=== PATIENT | female | born 1995 | race African-American/Black ===

== ENCOUNTER 2017-09-13 09:03 | Inpatient (IN) | payer BC, MEDICAID ==
[~2017-09-13] VITALS: Ht 157.5 cm; Wt 53.8 kg
[2017-09-13] VITALS (38 sets, daily range): BP systolic 96–143; BP diastolic 43–90
[2017-09-13] MEDS ORDERED: SODIUM CHLORIDE 0.9% 1,000 ML IV ONE ×2 (09:24→13:16)
[2017-09-13 09:50] LABS: CHLORIDE 98 mEq/L (98-107)
[2017-09-13 09:52] LABS: HEMOGLOBIN. 16.4 g/dL (12.0-16.0); MEAN CORPUSCULAR HEMOGLOBIN 32.4 pg (28.0-32.0); MEAN CORPUSCULAR VOLUME 106.8 fL (81.0-99.0); MEAN PLATELET VOLUME 8.3 fl (7.4-10.4); PLATELET 364 x1000/uL (130-400); RED BLOOD CELL COUNT 5.06 mill/uL (4.2-5.4)
[2017-09-13] MEDS ORDERED: INSULIN REGULAR (DRIP) 100 UNITS in SODIUM CHLORIDE 0.9% 99 ML IV SCH (10:15)
[2017-09-13] MEDS ORDERED: INSULIN REGULAR (HUMULIN R) 300UNITS/3ML IV ONE (10:15)
[2017-09-13 10:39] LABS: BG CARBOXYHEMOGLOBIN 0.3 % (0.5-1.5); BG DEOXYHEMOGLOBIN 1.6 % (0.0-5.0); BG FRACTION INSPIRED OXYGEN 21; BG HCO3 ACT 2.1 mmol/L (22.0-26.0); BG METHEMOGLOBIN 0.6 % (0.0-1.5); BG OXYGEN SATURATION 98.4 % (92.0-98.5); BG OXYHEMOGLOBIN 97.5 % (94.0-97.0); BG PCO2 10.5 mmHg (35.0-45.0); BG PH 6.919 (7.350-7.450); BG PO2 164.4 mmHg (75.0-100.0); BG SAMPLE SITE RIGHT BRACHIAL; BG TOTAL HEMOGLOBIN 16.5 g/dL (12.0-18.0); BG VENT MODE ROOM AIR
[2017-09-13 10:40] LABS: BETA HYDROXYBUTYRATE 10.9 mMol/L (0.0-0.3)
[2017-09-13] MEDS ORDERED: SODIUM BICARBONATE 8.4% 1 MEQ/ML 50ML SYR IV ONE (11:00)
[2017-09-13] MEDS ORDERED: IPRATROPIUM/ALBUTEROL 0.5-3(2.5)MG/3ML NEB INH PRN (11:00)
[2017-09-13] MEDS ORDERED: ONDANSETRON HCL 4MG/2ML VIAL IV PRN (11:00)
[2017-09-13] MEDS ORDERED: INSULIN REGULAR (DRIP) 100 UNITS in SODIUM CHLORIDE 0.9% 100 ML IV SCH ×2 (11:00→16:00)
[2017-09-13 11:21] LABS: PLATELET ESTIMATE NORMAL
[2017-09-13 12:05] LABS: PHOSPHORUS 4.8 mg/dL (2.5-4.9)
[2017-09-13 12:17] LABS: CLARITY URINE CLEAR (CLEAR); COLOR URINE YELLOW (YELLOW); KETONES URINE 4+ (NEGATIVE); LEUKOCYTE ESTERASE URINE NEGATIVE (NEGATIVE); NITRITE URINE NEGATIVE (NEGATIVE); OCCULT BLOOD URINE 3+ (NEGATIVE); PROTEIN URINE 1+ (NEGATIVE); SPECIFIC GRAVITY URINE 1.026 (1.005-1.030); UROBILINOGEN URINE 0.2 E.U./dL (0.2-1.0)
[2017-09-13] MEDS ORDERED: SODIUM CHLORIDE 0.45% 1,000 ML IV SCH (12:30)
[2017-09-13 12:48] LABS: *AMPHETAMINES SCREEN URINE NEGATIVE (NEGATIVE); *BARBITURATES SCREEN URINE NEGATIVE (NEGATIVE); *BENZODIAZEPINES SCREEN URINE NEGATIVE (NEGATIVE); *COCAINE SCREEN URINE NEGATIVE (NEGATIVE); METHADONE URINE SCREEN NEGATIVE (NEGATIVE)
[2017-09-13 12:49] LABS: CANNABINOID URINE SCREEN NEGATIVE (NEGATIVE); OPIATES URINE SCREEN NEGATIVE (NEGATIVE); PHENCYCLIDINE URINE SCREEN NEGATIVE (NEGATIVE)
[2017-09-13] MEDS ORDERED: SODIUM CHLORIDE 0.9% 1,000 ML IV SCH (13:00)
[2017-09-13] MEDS ORDERED: DEXT 5%/0.9% NACL 1,000 ML IV SCH ×2 (13:30→16:30)
[2017-09-13 13:54] LABS: HCG SCREEN NEGATIVE
[2017-09-13] MEDS: PIPERACILLIN/TAZ 3.375G PREMIX 50 ML IV SCH ×2 (14:26→19:00)
[2017-09-13] MEDS: ENOXAPARIN 40MG/0.4ML SYR SUBCUT SCH (14:37)
[2017-09-13] MEDS ORDERED: DEXTROSE 50% WATER 50ML SYRINGE IV PRN ×2 (15:15)
[2017-09-13] MEDS: BLOOD SUGAR DIAGNOSTIC STRIP TEST SCH ×8 (16:00→23:15)
[2017-09-13 17:57] LABS: CHLORIDE 110 mEq/L (98-107)
[2017-09-13 18:06] LABS: CREATINE KINASE 37 IU/L (26-192)
[2017-09-13 18:08] LABS: CREATINE KINASE MB FRACTION < 0.5 ng/mL (0.5-3.6)
[2017-09-13] MEDS: DEXT 5%/0.9% NACL KCL 20MEQ/L 1,000 ML IV SCH (20:11)
[2017-09-14] VITALS (50 sets, daily range): BP systolic 89–122; BP diastolic 47–78
[2017-09-14] MEDS: PIPERACILLIN/TAZ 3.375G PREMIX 50 ML IV SCH ×3 (00:04→13:00)
[2017-09-14] MEDS: BLOOD SUGAR DIAGNOSTIC STRIP TEST SCH ×9 (00:04→21:17)
[2017-09-14 00:15] LABS: CHLORIDE 114 mEq/L (98-107)
[2017-09-14 00:26] LABS: CREATINE KINASE 29 IU/L (26-192)
[2017-09-14 00:29] LABS: CREATINE KINASE MB FRACTION < 0.5 ng/mL (0.5-3.6)
[2017-09-14] MEDS: DEXT 5%/0.9% NACL KCL 20MEQ/L 1,000 ML IV SCH (03:58)
[2017-09-14 06:02] LABS: BASOPHILS % 0.4 % (0.0-2.0); HEMATOCRIT. 39.1 % (36.0-48.0); HEMOGLOBIN. 13.2 g/dL (12.0-16.0); LYMPHOCYTES % 22.6 % (20.0-50.0); MEAN CORPUSCULAR HEMOGLOBIN 31.8 pg (28.0-32.0); MEAN CORPUSCULAR VOLUME 94.1 fL (81.0-99.0); MEAN PLATELET VOLUME 7.6 fl (7.4-10.4); MONOCYTES % 10.6 % (2.0-8.0); NEUTROPHILS % 66.4 % (40.0-76.0); PLATELET 274 x1000/uL (130-400); RED BLOOD CELL COUNT 4.16 mill/uL (4.2-5.4); RED CELL DISTRIBUTION WIDTH 13.7 % (11.6-14.6)
[2017-09-14 06:14] LABS: CHLORIDE 115 mEq/L (98-107)
[2017-09-14 06:24] LABS: PHOSPHORUS 2.4 mg/dL (2.5-4.9)
[2017-09-14] MEDS: DEXT 5%/0.45% NACL KCL 20MEQ/L 1,000 ML IV SCH ×2 (08:00→18:00)
[2017-09-14] MEDS ORDERED: POTASSIUM PHOS,M-BASIC-D-BASIC 10 MMOL in DEXT 5% WATER 246.6667 ML IV NR (09:00)
[2017-09-14] MEDS: INSULIN GLARGINE UD 100 UNITS/ML SYR SUBCUT SCH (10:10)
[2017-09-14] MEDS ORDERED: DEXTROSE 50% WATER 50ML SYRINGE IV PRN (11:00)
[2017-09-14] MEDS: INSULIN LISPRO 100 UNITS/ML SUBCUT SCH ×3 (12:00→21:18)
[2017-09-14] MEDS: ENOXAPARIN 40MG/0.4ML SYR SUBCUT SCH (14:00)
[2017-09-14] MEDS ORDERED: THROAT LOZENGES-BENZOCAINE/MENTH/CETYLPYRD CL LOZENGES MM PRN (16:30)
[2017-09-14] MEDS: AMOXICILLIN 500 MG CAPSULE PO SCH ×2 (16:33→21:18)
[2017-09-15 04:00] VITALS: BP 100/68
[2017-09-15] MEDS: DEXT 5%/0.45% NACL KCL 20MEQ/L 1,000 ML IV SCH (04:17)
[2017-09-15] MEDS: AMOXICILLIN 500 MG CAPSULE PO SCH ×2 (06:20→13:49)
[2017-09-15 07:36] LABS: BASOPHILS % 0.8 % (0.0-2.0); EOSINOPHILS % 0.6 % (0.0-5.0); HEMATOCRIT. 35.4 % (36.0-48.0); HEMOGLOBIN. 11.9 g/dL (12.0-16.0); LYMPHOCYTES % 38.1 % (20.0-50.0); MEAN CORPUSCULAR HEMOGLOBIN 31.2 pg (28.0-32.0); MEAN CORPUSCULAR VOLUME 93.2 fL (81.0-99.0); MEAN PLATELET VOLUME 7.8 fl (7.4-10.4); MONOCYTES % 7.1 % (2.0-8.0); NEUTROPHILS % 53.4 % (40.0-76.0); PLATELET 236 x1000/uL (130-400); RED CELL DISTRIBUTION WIDTH 13.9 % (11.6-14.6)
[2017-09-15 08:00] VITALS: BP 107/45
[2017-09-15] MEDS: BLOOD SUGAR DIAGNOSTIC STRIP TEST SCH ×2 (08:17→13:04)
[2017-09-15 08:56] LABS: CHLORIDE 109 mEq/L (98-107)
[2017-09-15 09:19] LABS: PHOSPHORUS 2.1 mg/dL (2.5-4.9)
[2017-09-15] MEDS: INSULIN GLARGINE UD 100 UNITS/ML SYR SUBCUT SCH (09:48)
[2017-09-15] MEDS: INSULIN LISPRO 100 UNITS/ML SUBCUT SCH ×2 (09:49→13:52)
[2017-09-15] MEDS ORDERED: INSLIS SUBCUT (10:54)
[2017-09-15] MEDS ORDERED: LANTUSUD SUBCUT (10:54)
[2017-09-15] MEDS ORDERED: SODIUM PHOS,M-BASIC-D-BASIC 15 MM in DEXT 5% WATER 245 ML IV NR (11:30)
[2017-09-15 12:00] VITALS: BP 102/61
[2017-09-15] MEDS: ENOXAPARIN 40MG/0.4ML SYR SUBCUT SCH (13:49)
[2017-09-15 16:04] VITALS: BP 105/60
== END 2017-09-15 16:30 | disposition home or self-care (01) | DRG 638 ==
LOC: ER 09:45 → EDBEDREQ 10:16 → MICUSO 10:16 → EDBEDREQ 10:25 → ENRESERV 11:15 → 7WST 09-14 23:00
PROVIDERS: ADMIT Internal Medicine; ATTEND Internal Medicine
DX: E10.10 Type 1 diabetes mellitus with ketoacidosis without coma (principal); E87.1 Hypo-osmolality and hyponatremia; E87.5 Hyperkalemia; N39.0 Urinary tract infection, site not specified; E86.9 Volume depletion, unspecified; B95.5 Unspecified streptococcus as the cause of diseases classified elsewhere; Z79.4 Long term (current) use of insulin
CPT/HCPCS: 36415; 36600; 71045; 80048; 80053; 80305; 81003; 82010; 82375; 82550; 82553; 82805; 82962; 83690; 83735; 84100; 84443; 84484; 84703; 85025; 87040; 87077; 87086; 93005; 93306; 93970; 96374; 96376; 99291; J1650; J1815; J2405; J2543; J3490; J7030; J7042; J7050; J7060

== ENCOUNTER 2022-01-07 11:57 | Inpatient (IN) | payer MEDICAID ==
[~2022-01-07] VITALS: Ht 165.1 cm; Wt 75.3 kg
[2022-01-07] VITALS (7 sets, daily range): BP systolic 109–142; BP diastolic 67–87
[~2022-01-07 11:57] MED LIST: INSLIS SUBCUT; LANTUSUD SUBCUT
[2022-01-07] MEDS ORDERED: SODIUM CHLORIDE 0.9% 1,000 ML IV ONE ×2 (12:30→14:00)
[2022-01-07 13:49] LABS: HEMATOCRIT. 46.3 % (36.0-48.0); HEMOGLOBIN. 13.8 g/dL (12.0-16.0); MEAN CORPUSCULAR HEMOGLOBIN 29.7 pg (28.0-32.0); MEAN CORPUSCULAR VOLUME 99.5 fL (81.0-99.0); MEAN PLATELET VOLUME 7.9 fl (7.4-10.4); PLATELET 311 x1000/uL (130-400); RED BLOOD CELL COUNT 4.66 mill/uL (4.2-5.4); RED CELL DISTRIBUTION WIDTH 15.4 % (11.6-14.6)
[2022-01-07 13:53] LABS: CHLORIDE 102 mEq/L (98-107)
[2022-01-07 14:00] LABS: HCG SCREEN NEGATIVE
[2022-01-07 14:07] LABS: BETA HYDROXYBUTYRATE 9.2 mMol/L (0.0-0.3)
[2022-01-07] MEDS ORDERED: CALCIUM CHLORIDE 1GM/10ML SYR IV SCH (14:15)
[2022-01-07] MEDS ORDERED: SODIUM CHLORIDE 0.9% 1,000 ML IV SCH (14:15)
[2022-01-07] MEDS ORDERED: INSULIN REGULAR 100U/100ML PMX 100 ML IV SCH ×3 (14:15→22:15)
[2022-01-07 14:50] LABS: BG BASE EXCESS -30.2 mmol/L (-2.0-2.0); BG CARBOXYHEMOGLOBIN 0.3 % (0.5-1.5); BG DEOXYHEMOGLOBIN 2.4 % (0.0-5.0); BG FRACTION INSPIRED OXYGEN 21; BG HCO3 ACT 1.9 mmol/L (22.0-26.0); BG METHEMOGLOBIN 0.5 % (0.0-1.5); BG OXYGEN SATURATION 97.6 % (92.0-98.5); BG OXYHEMOGLOBIN 96.8 % (94.0-97.0); BG PCO2 10.8 mmHg (35.0-45.0); BG PH 6.868 (7.350-7.450); BG PO2 148.5 mmHg (75.0-100.0); BG TOTAL HEMOGLOBIN 13.9 g/dL (12.0-18.0); BG VENT MODE ROOM AIR
[2022-01-07] MEDS ORDERED: SODIUM BICARBONATE 8.4% 1 MEQ/ML 50ML SYR IV ONE (15:00)
[2022-01-07 15:21] LABS: CLARITY URINE CLEAR (CLEAR); COLOR URINE YELLOW (YELLOW); KETONES URINE 4+ (NEGATIVE); LEUKOCYTE ESTERASE URINE NEGATIVE (NEGATIVE); NITRITE URINE NEGATIVE (NEGATIVE); OCCULT BLOOD URINE NEGATIVE (NEGATIVE); PROTEIN URINE 1+ (NEGATIVE); SPECIFIC GRAVITY URINE 1.026 (1.005-1.030); UROBILINOGEN URINE 0.2 E.U./dL (0.2-1.0)
[2022-01-07 15:34] LABS: PLATELET ESTIMATE NORMAL
[2022-01-07] MEDS ORDERED: DEXTROSE 50% WATER 50ML SYRINGE IV PRN ×3 (15:45→19:30)
[2022-01-07 16:03] LABS: PHOSPHORUS 4.9 mg/dL (2.5-4.9)
[2022-01-07] MEDS: BLOOD SUGAR DIAGNOSTIC STRIP TEST SCH ×13 (16:19→23:02)
[2022-01-07] MEDS: SODIUM CHLORIDE 0.9% 1,000 ML IV SCH ×2 (17:05→22:24)
[2022-01-07] MEDS: ENOXAPARIN 40MG/0.4ML SYR SUBCUT SCH (18:16)
[2022-01-07 19:04] LABS: BG BASE EXCESS -29.1 mmol/L (-2.0-2.0); BG CARBOXYHEMOGLOBIN 0.3 % (0.5-1.5); BG DEOXYHEMOGLOBIN 1.8 % (0.0-5.0); BG FRACTION INSPIRED OXYGEN 21; BG HCO3 ACT 2.3 mmol/L (22.0-26.0); BG METHEMOGLOBIN 0.3 % (0.0-1.5); BG OXYGEN SATURATION 98.2 % (92.0-98.5); BG OXYHEMOGLOBIN 97.6 % (94.0-97.0); BG PCO2 11.5 mmHg (35.0-45.0); BG PH 6.911 (7.350-7.450); BG PO2 147.7 mmHg (75.0-100.0); BG SAMPLE SITE RIGHT RADIAL; BG VENT MODE ROOM AIR
[2022-01-07] MEDS ORDERED: MAGNESIUM/ALUMINUM HYDROXIDE/SIMETHICONE 30ML UDC PO PRN (19:30)
[2022-01-07] MEDS ORDERED: NA PHOS,M-B/NA PHOS,DI-BA ENEMA 118ML PR PRN (19:30)
[2022-01-07] MEDS ORDERED: IPRATROPIUM/ALBUTEROL 0.5-3(2.5)MG/3ML NEB NEB PRN (19:30)
[2022-01-07] MEDS ORDERED: ACETAMINOPHEN 325MG TABLET PO PRN ×2 (19:30)
[2022-01-07] MEDS ORDERED: KETOROLAC 30MG/ML VIAL IV PRN (19:30)
[2022-01-07] MEDS ORDERED: CLONIDINE 0.1MG TABLET PO PRN (19:30)
[2022-01-07] MEDS ORDERED: DOCUSATE SODIUM 100MG CAPSULE PO PRN (19:30)
[2022-01-07] MEDS ORDERED: GUAIFENESIN 200MG/10ML SUGAR FREE UDC PO PRN (19:30)
[2022-01-07] MEDS: PANTOPRAZOLE SODIUM 40 MG/VIAL IV SCH (21:00)
[2022-01-07 22:07] LABS: CHLORIDE 117 mEq/L (98-107)
[2022-01-07] MEDS ORDERED: DEXT 5%/0.9% NACL KCL 20MEQ/L 1,000 ML IV ONE (22:45)
[2022-01-07] MEDS ORDERED: SODIUM BICARBONATE 8.4% 1 MEQ/ML 50ML SYR IV NR (23:00)
[2022-01-07] MEDS: ZOLPIDEM TARTRATE 5MG TABLET PO PRN (23:07)
[2022-01-08] VITALS (12 sets, daily range): BP systolic 108–153; BP diastolic 52–91
[2022-01-08] MEDS: BLOOD SUGAR DIAGNOSTIC STRIP TEST SCH ×13 (00:07→23:00)
[2022-01-08 11:34] LABS: BASOPHILS % 0.1 % (0.0-2.0); HEMOGLOBIN. 12.6 g/dL (12.0-16.0); LYMPHOCYTES % 8.5 % (20.0-50.0); MEAN CORPUSCULAR HEMOGLOBIN 29.2 pg (28.0-32.0); MEAN CORPUSCULAR VOLUME 90.1 fL (81.0-99.0); MEAN PLATELET VOLUME 7.5 fl (7.4-10.4); MONOCYTES % 7.4 % (2.0-8.0); PLATELET 277 x1000/uL (130-400); RED BLOOD CELL COUNT 4.33 mill/uL (4.2-5.4); RED CELL DISTRIBUTION WIDTH 13.7 % (11.6-14.6)
[2022-01-08 11:36] LABS: CHLORIDE 123 mEq/L (98-107)
[2022-01-08 11:40] LABS: PHOSPHORUS 2.3 mg/dL (2.5-4.9)
[2022-01-08] MEDS ORDERED: KETOROLAC 15MG/ML VIAL IV PRN (12:31)
[2022-01-08] MEDS: ONDANSETRON HCL 4MG/2ML INJ IV PRN (14:23)
[2022-01-08] MEDS ORDERED: DEXT 5%/0.45% NACL 1000ML 1,000 ML IV SCH (16:00)
[2022-01-08] MEDS: DEXT 5%/0.45% NACL KCL 20MEQ/L 1,000 ML IV SCH (16:30)
[2022-01-08] MEDS ORDERED: POTASSIUM PHOS,M-BASIC-D-BASIC 20 MMOL in DEXT 5% WATER 243.3333 ML IV NR (17:00)
[2022-01-08] MEDS: ENOXAPARIN 40MG/0.4ML SYR SUBCUT SCH (18:34)
[2022-01-08] MEDS: PANTOPRAZOLE SODIUM 40 MG/VIAL IV SCH (21:07)
[2022-01-09] VITALS (17 sets, daily range): BP systolic 107–156; BP diastolic 57–92
[2022-01-09] MEDS: DEXT 5%/0.45% NACL KCL 20MEQ/L 1,000 ML IV SCH ×2 (00:12→06:21)
[2022-01-09] MEDS: BLOOD SUGAR DIAGNOSTIC STRIP TEST SCH ×10 (00:13→21:33)
[2022-01-09 05:50] LABS: BASOPHILS % 0.5 % (0.0-2.0); HEMATOCRIT. 36.4 % (36.0-48.0); HEMOGLOBIN. 12.2 g/dL (12.0-16.0); LYMPHOCYTES % 18.4 % (20.0-50.0); MEAN CORPUSCULAR HEMOGLOBIN 29.6 pg (28.0-32.0); MEAN CORPUSCULAR VOLUME 88.7 fL (81.0-99.0); MEAN PLATELET VOLUME 7.8 fl (7.4-10.4); MONOCYTES % 6.1 % (2.0-8.0); PLATELET 240 x1000/uL (130-400); RED CELL DISTRIBUTION WIDTH 13.9 % (11.6-14.6)
[2022-01-09 05:54] LABS: CHLORIDE 116 mEq/L (98-107)
[2022-01-09 06:05] LABS: PHOSPHORUS 1.5 mg/dL (2.5-4.9)
[2022-01-09] MEDS ORDERED: DEXTROSE 50% WATER 50ML SYRINGE IV PRN (10:30)
[2022-01-09] MEDS: INSULIN LISPRO 100 UNITS/ML SUBCUT SCH ×5 (10:40→21:00)
[2022-01-09] MEDS: INSULIN GLARGINE 100 UNITS/ML SUBCUT SCH (10:43)
[2022-01-09] MEDS ORDERED: POTASSIUM PHOS,M-BASIC-D-BASIC 30 MMOL in DEXT 5% WATER 500 ML IV NR (12:00)
[2022-01-09] MEDS: ONDANSETRON HCL 4MG/2ML INJ IV PRN (16:52)
[2022-01-09] MEDS: ENOXAPARIN 40MG/0.4ML SYR SUBCUT SCH (17:08)
[2022-01-09] MEDS: PANTOPRAZOLE SODIUM 40 MG/VIAL IV SCH (21:33)
[2022-01-09] MEDS: ZOLPIDEM TARTRATE 5MG TABLET PO PRN (21:33)
[2022-01-10] VITALS: BP 114/58
[2022-01-10 04:00] VITALS: BP 112/66
[2022-01-10 04:47] LABS: BASOPHILS % 0.3 % (0.0-2.0); EOSINOPHILS % 0.1 % (0.0-5.0); HEMOGLOBIN. 11.5 g/dL (12.0-16.0); LYMPHOCYTES % 35.8 % (20.0-50.0); MEAN CORPUSCULAR HEMOGLOBIN 29.5 pg (28.0-32.0); MEAN CORPUSCULAR VOLUME 87.3 fL (81.0-99.0); MEAN PLATELET VOLUME 7.5 fl (7.4-10.4); MONOCYTES % 5.7 % (2.0-8.0); NEUTROPHILS % 58.1 % (40.0-76.0); PLATELET 212 x1000/uL (130-400); RED BLOOD CELL COUNT 3.89 mill/uL (4.2-5.4); RED CELL DISTRIBUTION WIDTH 13.8 % (11.6-14.6)
[2022-01-10 04:58] LABS: CHLORIDE 107 mEq/L (98-107)
[2022-01-10 05:07] LABS: PHOSPHORUS 2.9 mg/dL (2.5-4.9)
[2022-01-10] MEDS: INSULIN LISPRO 100 UNITS/ML SUBCUT SCH ×4 (05:32→11:06)
[2022-01-10] MEDS: BLOOD SUGAR DIAGNOSTIC STRIP TEST SCH ×2 (05:33→11:04)
[2022-01-10] MEDS ORDERED: MAGNESIUM 2 G PREMIX 50 ML IV SCH (07:15)
[2022-01-10] MEDS ORDERED: POTASSIUM CHLORIDE 20MEQ TABLET SR PO SCH ×2 (07:15→10:30)
[2022-01-10 08:00] VITALS: BP 114/69
[2022-01-10] MEDS ORDERED: INSLIS SUBCUT (08:36)
[2022-01-10] MEDS ORDERED: LANTUSUD SUBCUT (08:36)
[2022-01-10] MEDS: KCL 20MEQ/100ML PREMIX 100 ML IV SCH ×2 (08:54→08:55)
[2022-01-10] MEDS: INSULIN GLARGINE 100 UNITS/ML SUBCUT SCH (11:25)
[2022-01-10 12:00] VITALS: BP 111/69
[2022-01-10 12:24] VITALS: BP 111/69
== END 2022-01-10 12:15 | disposition home or self-care (01) | DRG 420 ==
LOC: ER 12:13 → EDBEDREQTM 15:17 → EDBEDREQ 15:17 → ENRESERV 16:01 → MICUNO 16:37
PROVIDERS: ADMIT Internal Medicine; ATTEND Internal Medicine
DX: E10.10 Type 1 diabetes mellitus with ketoacidosis without coma (principal); D72.829 Elevated white blood cell count, unspecified; E87.5 Hyperkalemia; I10 Essential (primary) hypertension; E87.6 Hypokalemia; J45.909 Unspecified asthma, uncomplicated; Z20.822 Contact with and (suspected) exposure to COVID-19
CPT/HCPCS: 36415; 36600; 71045; 80048; 80053; 81003; 82010; 82375; 82805; 82962; 83735; 84100; 84703; 85025; 87426; 99291; C1893; C9113; C9803; J1650; J1815; J2405; J3475; J3480; J3490; J7030; J7060